=== PATIENT | female | born 1975 | race Caucasian/White ===

== ENCOUNTER 2023-09-14 09:57 | Emergency (ER) | payer OTHER, SELFPAY ==
[2023-09-14 10:05] VITALS: BP 153/121; PULSE 75; TEMP 36.6; O2SAT 98; BMI 42.6
[2023-09-14 10:23] VITALS: BP 138/80; PULSE 74; O2SAT 100
--- NOTE | 2023-09-14 10:54 | ED.GENADUL1 ---
HPI HPI - General Adult General Chief complaint: Neck Pain/Injury Stated complaint: BLURRED VISION, NECK PAIN Time Seen by Provider: 09/14/23 10:54 Source: patient Mode of arrival: walk-in History of Present Illness HPI narrative: This patient is here complaint complaining of some discomfort in her left shoulder and her right neck area there. Then she had a little bit of blurriness of vision in both her eyes did not feel very good. She did not have actual any chest pain or discomfort. She did not have nausea vomiting or shortness of breath. She was a little bit anxious earlier and today was somewhat tearful. She is very worried about her health because her father's young and her mother just had a heart attack at age 70 she does not use tobacco products. Cardiovascular risk factors include history of hypertension and that is pretty much it for this patient. She denies any history of diabetes or cholesterol problems. No tobacco or drug use. She does not have diabetes as I said. She did not have double vision. She did not have dysarthria dysphagia. She did not have any paresis or paresthesias of the extremities. She said she had a very mild start of a headache but is not a severe headache at all. Related Data Home Medications ?Medication ?Instructions ?Recorded ?Confirmed lisinopril 5 mg tablet 5 mg PO DAILY 09/14/23 09/14/23 metformin 750 mg tablet,extended 750 mg PO DAILY 09/14/23 09/14/23 release 24 hr metoprolol succinate 25 mg 25 mg PO DAILY 09/14/23 09/14/23 tablet,extended release 24 hr norethindrone (contraceptive) 0.35 0.35 mg PO DAILY 09/14/23 09/14/23 mg tablet omeprazole 20 mg capsule,delayed 20 mg PO DAILY 09/14/23 09/14/23 release Allergies Allergy/AdvReac Type Severity Reaction Status Date / Time No Known Drug Allergies Allergy Verified 09/14/23 10:13 Opioid HPI Opioid Management Most Recent Opioid Data: Last Pain Scale 0 09/14/23 10:55 Exam Narrative Exam Narrative: Awake alert tearful and anxious. She says she is worried about having a son heart issue. On HEENT she has no upper airway obstruction there is no stridor. Her mucous membranes are moist and pink there is no conjunctivitis. She has no carotid bruits on either side. Her eye examination shows normal cup-to-disc and AV ratio with no evidence of vascular disease. Heart sounds are normal with no S3-S4 or murmur. Her lungs are clear with no wheeze rales or rhonchi. Neurological examination shows cranial nerves II through XII to be normal. She has no focal sensory deficit or motor weakness at this time. The extremities show no evidence of DVT phlebitis or edema. Constitutional Vital Signs, click to edit/add: Last Vital Signs Temp 97.9 F 09/14/23 10:05 Pulse 74 09/14/23 10:23 Resp 20 09/14/23 10:23 BP 138/80 09/14/23 10:23 Pulse Ox 100 09/14/23 10:23 O2 Del Method Room Air 09/14/23 10:23 Course Vital Signs Vital signs: Vital Signs Temperature 97.9 F 09/14/23 10:05 Pulse Rate 75 09/14/23 10:05 Respiratory Rate 18 09/14/23 10:05 Blood Pressure 153/121 H 09/14/23 10:05 Pulse Oximetry 98 09/14/23 10:05 Oxygen Delivery Method Room Air 09/14/23 10:05 Temperature 97.9 F 09/14/23 10:05 Pulse Rate 74 09/14/23 10:23 Respiratory Rate 20 09/14/23 10:23 Blood Pressure 138/80 09/14/23 10:23 Pulse Oximetry 100 09/14/23 10:23 Oxygen Delivery Method Room Air 09/14/23 10:23 Medical Decision Making MDM Narrative Medical decision making narrative: Screening laboratory testing was done with no acute abnormalities identified. Cardiac troponin is normal. Twelve-lead EKG is normal. Her EKG shows sinus rhythm with no arrhythmia or ST segment elevation. Intervals are grossly normal. She is scheduled to see her eye doctor on a routine basis next week. I would like her follow-up with her primary care doctor to at least discuss any further diagnostic testing based on her cardiac risk profile Discharge Plan Discharge Stand Alone Forms: Portal Instructions Chief Complaint: Neck Pain/Injury Clinical Impression: Strain of neck muscle Patient Disposition: Home, Self-Care Time of Disposition Decision: 12:26 Print Language: Tunisian Additional Instructions: Follow-up with your primary care doctor to discuss any further diagnostic testing Referrals: Physician,Non-Staff, MD [Primary Care Provider] - 1 week
--- NOTE | 2023-09-14 10:55 | XR_ITS ---
The [address] [address] Patient Name: JUSTICE ROBERTS MRN: [id number] date: 1975 Sex: F Assigned Patient Location: ER Current Patient Location: ER Accession/Order Number: [id number] Exam Date: 09/14/2023 11:00 Report Date: 09/14/2023 11:13 At the request of: TODD POTTS Procedure: XR chest 1V EXAM: XR chest 1V HISTORY: Lightheaded COMPARISON: None. TECHNIQUE: AP view of the chest. FINDINGS: The cardiomediastinal silhouette is normal. The lungs are clear. There is no pneumothorax. No pleural effusion is noted. The osseous structures are intact. XR/XR chest 1V IMPRESSION: No acute cardiopulmonary process. Electronically authenticated by: CHRISTIAN DE LEÓN Date: 09/14/2023 11:13
--- NOTE | 2023-09-14 10:55 | ECG_ITS ---
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
[2023-09-14 11:20] LABS: Basophils Absolute Auto 0.1 10^3/uL (0.0-0.1); Eosinophils Absolute Auto 0.1 10^3/uL (0.0-0.7); Eosinophils Percent Auto 1.1 % (0.9-7.0); Hematocrit 43.9 % (36.0-48.0); Hemoglobin 14.4 g/dL (12.0-16.0); Immature Granulocytes Abs Auto 0.03 10^3/uL (0.00-0.03); Immature Granulocytes Pct Auto 0.3 % (0.0-0.5); Lymphocytes Absolute Auto 1.8 10^3/uL (1.2-3.8); Lymphocytes Percent Auto 19.4 % (20.5-60.0); Mean Corpuscular HGB Conc 32.8 g/dL (29.9-35.2); Mean Corpuscular Hemoglobin 30.8 pg (26.7-34.0); Mean Corpuscular Volume 93.8 fL (81.0-99.0); Mean Platelet Volume 9.8 fL (9.5-13.5); Monocytes Absolute Auto 0.5 10^3/uL (0.3-0.8); Neutrophils Absolute Auto 6.9 10^3/uL (1.4-6.5); Neutrophils Percent Auto 73.2 % (43.0-75.0); Platelet Count 382 10^3/uL (150-450); Red Blood Count 4.68 10^6/uL (4.20-5.40); Red Cell Distribution Width 13.9 % (11.0-15.0); White Blood Count 9.4 10^3/uL (4.0-11.0)
[2023-09-14 11:39] LABS: Alanine Aminotransferase 29 U/L (14-59); Albumin Globulin Ratio 0.9; Albumin Level 3.8 g/dL (3.4-5.0); Alkaline Phosphatase 119 U/L (46-116); Anion Gap 15.3; Aspartate Amino Transferase 19 U/L (15-37); BUN Creatinine Ratio 15.9; Bilirubin Total 1.1 mg/dL (0.2-1.0); Calcium 9.1 mg/dL (8.5-10.1); Carbon Dioxide 24.9 mmol/L (21.0-32.0); Chloride 106 mmol/L (98-107); Estimated GFR (African America >60 (>=60); Estimated GFR (Non-African Ame >60 (>=60); Globulin 4.1 g/dL; Glucose 103 mg/dL (74-106); Potassium 4.2 mmol/L (3.5-5.1); Sodium 142 mmol/L (136-145); Total Protein 7.9 g/dL (6.4-8.2)
[2023-09-14 11:40] LABS: D Dimer 0.31 mg/L FEU (<=0.59)
[2023-09-14 11:42] LABS: Troponin I High Sensitivity 4.1 pg/mL (4.0-51.3)
[2023-09-14 12:06] VITALS: BP 120/80; PULSE 72; O2SAT 98
== END 2023-09-14 13:03 | disposition home or self-care (01) ==
PROVIDERS: Emergency Provider Emergency Medicine Emergency Medical Services
DX: S16.1XXA Strain of muscle, fascia and tendon at neck level, initial encounter (principal); X58.XXXA Exposure to other specified factors, initial encounter; I10 Essential (primary) hypertension; Z79.899 Other long term (current) drug therapy; Z79.84 Long term (current) use of oral hypoglycemic drugs
CPT/HCPCS: 36415; 71045; 80053; 84484; 85025; 85378; 93005; 99285

== ENCOUNTER 2025-05-13 16:27 | Outpatient (OUT) | payer BC, SELFPAY ==
--- NOTE | 2025-05-13 16:36 | MM_ITS ---
Patient Name: JUSTICE ROBERTS MR#: [id number] : 1975 Exam Date: 05/13/2025 Ordering Doctor: DR GILBERT [facility]A [facility] RADIOLOG[facility] REPORT PROCEDURE: MM TOMOSYNTHESIS SCREENING BI COMPARISON: MM TOMOSYNTHESIS SCREENING BI, 11/30/2023. MM TOMOSYNTHESIS SCREENING BI, 11/17/2022. INDICATIONS: SCREENING Calculator Name NCI Breast Cancer Risk Assessment Tool 5 Year Breast Cancer Risk 0.80% Lifetime Breast Cancer Risk 7.20% Personal Breast Cancer No Personal Ovarian Cancer No Treatments None Family Cancers Aunt-maternal with breast cancer at age ~55. LOCATION: [facility] BREAST COMPOSITION: There are scattered areas of fibroglandular density. FINDINGS: RIGHT BREAST: No significant suspicious finding. LEFT BREAST: No significant suspicious finding. DIAGNOSTIC CATEGORY 1--NEGATIVE. NO CHANGE FROM COMPARISON ASSESSMENT. RECOMMENDATIONS: ROUTINE MAMMOGRAM AND CLINICAL EVALUATION IN 12 MONTHS. Dictated by: Antonio Andrea MD on 05/16/2025 at 11:34 Approved by: Antonio Andrea MD on 05/16/2025 at 11:39
== END 2025-05-13 16:28 | disposition home or self-care (01) ==
PROVIDERS: Visit Provider Midwife
DX: Z12.31 Encounter for screening mammogram for malignant neoplasm of breast (principal); Z80.3 Family history of malignant neoplasm of breast
CPT/HCPCS: 77063; 77067